=== PATIENT | female | born 1960 | race Caucasian/White ===

== ENCOUNTER 2025-03-18 13:47 | Emergency (ER) | payer MEDICARE, OTHER ==
[~2025-03-18] VITALS: Ht 160 cm; Wt 99.8 kg
[2025-03-18 14:00] VITALS: TEMP 97.9
[2025-03-18] MEDS ORDERED: DIAZEPAM 5 MG TAB PO STA (14:31)
[2025-03-18] MEDS: KETOROLAC TROMETHAMINE 30 MG/ML VIAL IM STA (14:54)
[2025-03-18] MEDS: DIAZEPAM 2 MG TAB PO ONE (14:54)
[2025-03-18] MEDS ORDERED: VALIUM2 MG PO (15:03)
[2025-03-18 15:30] VITALS: PULSE 51; RESP 16
[2025-03-18 15:38] VITALS: BP 126/81; PULSE 74; RESP 18; TEMP 98.3; O2SAT 98
== END 2025-03-18 15:41 | disposition home or self-care (01) ==
LOC: ER 14:17
DX: M54.2 Cervicalgia (principal); M62.838 Other muscle spasm; X50.1XXA Overexertion from prolonged static or awkward postures, initial encounter; Y92.29 Other specified public building as the place of occurrence of the external cause; I10 Essential (primary) hypertension; F41.9 Anxiety disorder, unspecified; F32.A Depression, unspecified; Z96.653 Presence of artificial knee joint, bilateral
CPT/HCPCS: 99284; J1885